=== PATIENT | male | born 1995 | race Caucasian/White ===

== ENCOUNTER 2021-09-11 21:51 | Emergency (ER) | payer SELFPAY ==
[~2021-09-11] VITALS: Ht 182.9 cm; Wt 80.7 kg
[2021-09-11 22:00] VITALS: BP 119/79
--- NOTE | 2021-09-11 22:06 | NUR ---
PATIENT AMBULATED TO THE BATHROOM FOR URINE COLLECTION
--- NOTE | 2021-09-11 22:11 | NUR ---
PT AMBULATED TO BED 08.
--- NOTE | 2021-09-11 22:33 | NUR ---
PATIENT ALERT ORIENTED COMPLAINING OF PAIN BUT STAY I DON LIKE THE HOSPITAL I DONT WANT TO BE HERE BECAUSE MY DOESNT ANSWER MY PHONE THE PATIENT WENT TO THE PARKING LOT AFTER HE COLECT THE URINE AND SAY THAT THE URINE MOST BE + for methanphetamine and alcohol because him been using today so he say he will be looking for his went to the parking lot and haven coming back so far //Caden CAMPBELL
== END 2021-09-11 22:33 | disposition left against medical advice (07) ==
LOC: MED 21:51
DX: R10.9 Unspecified abdominal pain (principal); Z53.21 Procedure and treatment not carried out due to patient leaving prior to being seen by health care provider

== ENCOUNTER 2021-10-17 01:20 | Emergency (ER) | payer MEDICAID ==
[~2021-10-17] VITALS: Ht 182.9 cm; Wt 79.4 kg
[2021-10-17 01:20] VITALS: BP 129/83
--- NOTE | 2021-10-17 01:20 | NUR ---
PT TAKEN TO ER BED 11. DR. WALDRON AT BEDSIDE
--- NOTE | 2021-10-17 01:31 | NUR ---
X-Ray at bedside.
--- NOTE | 2021-10-17 01:43 | NUR ---
[place] [employer] AT BEDSIDE
--- NOTE | 2021-10-17 01:49 | NUR ---
Patient to be transferred to [facility]. Is being transferred due to higher level of care. Receiving facility has accepting physician and available space. ER physician has signed transfer form. Patient or responsible republican has agreed to transfer and signed form. Patient belongings inventoried and will be sent with patient. Copy of nursing notes, lab reports, EKG, Physicians Orders and X-rays to be sent with patient. Report called to security business analyst at receiving facility. [facility] ambulance service has been called for transfer. ETA is 15minutes.
[2021-10-17] MEDS ORDERED: NACL 0.9% 1,000 ML IV ONE (01:50)
--- NOTE | 2021-10-17 01:53 | NUR ---
[facility] TRANSPORT AT BEDSIDE
--- NOTE | 2021-10-17 02:02 | NUR ---
PT LEFT FACILITY AT THIS TIME TO BE TRANSFERRED TO [facility]
--- NOTE | 2021-10-17 02:02 | NUR ---
PT TAKEN BY [facility] TRANSPORT TO [facility] ER
== END 2021-10-17 02:02 | disposition short-term general hospital (02) ==
LOC: MED 01:20
DX: S31.619A Laceration without foreign body of abdominal wall, unspecified quadrant with penetration into peritoneal cavity, initial encounter (principal); W26.0XXA Contact with knife, initial encounter; Y93.89 Activity, other specified; Y92.89 Other specified places as the place of occurrence of the external cause; Y99.8 Other external cause status
CPT/HCPCS: 71045; 74018; 96360; 99291; J7030; Q0092

== ENCOUNTER 2022-01-05 22:58 | Emergency (ER) | payer MEDICAID ==
[~2022-01-05] VITALS: Ht 182.9 cm; Wt 85.7 kg
[2022-01-05 23:11] VITALS: BP 123/73
--- NOTE | 2022-01-05 23:11 | NUR ---
TO BED AMBULATORY
--- NOTE | 2022-01-05 23:27 | NUR ---
Dr. Chappell examining patient.
--- NOTE | 2022-01-05 23:27 | NUR ---
Farhad medrano in [facility] - 01/05/[address] Chappell examining patient.
--- NOTE | 2022-01-05 23:28 | NUR ---
Farhad medrano in [facility] - 01/05/22 at 2333 by HUGO PT JANAE
--- NOTE | 2022-01-05 23:28 | NUR ---
Farhad medrano in [facility] - 01/05/22 at 2328 by HUGO CONRADO WILLARD
--- NOTE | 2022-01-05 23:29 | NUR ---
porfirio ramos. dr. Chappell made aware.
== END 2022-01-05 23:29 | disposition left against medical advice (07) ==
LOC: MED 22:58
DX: M54.9 Dorsalgia, unspecified (principal); M79.10 Myalgia, unspecified site; F15.90 Other stimulant use, unspecified, uncomplicated; Z53.21 Procedure and treatment not carried out due to patient leaving prior to being seen by health care provider

== ENCOUNTER 2022-02-08 00:11 | Emergency (ER) | payer MEDICAID ==
[~2022-02-08] VITALS: Ht 182.9 cm; Wt 81.6 kg
--- NOTE | 2022-02-08 00:11 | NUR ---
CONRADO RODRÍGUEZ PREBOOK. TAKEN TO CHAIR
[2022-02-08 00:20] VITALS: BP 112/79
--- NOTE | 2022-02-08 01:03 | NUR ---
Dr. Aiken examining patient.
[2022-02-08] MEDS ORDERED: ACETAMINOPHEN EXTRA STRENGTH 500 MG TAB PO ONE (01:05)
[2022-02-08 01:25] VITALS: BP 112/79
--- NOTE | 2022-02-08 01:25 | NUR ---
Patient discharged with v/s stable. Written and verbal after care instructions given and explained. Patient verbalized understanding. Ambulatory with steady gait. All questions addressed prior to discharge. Advised to follow up with PMD.
== END 2022-02-08 01:25 ==
LOC: MED 00:11
DX: F41.0 Panic disorder [episodic paroxysmal anxiety] (principal); R51.9 Headache, unspecified; F11.23 Opioid dependence with withdrawal; Z02.89 Encounter for other administrative examinations
CPT/HCPCS: 99282

== ENCOUNTER 2022-08-02 11:20 | Emergency (ER) | payer MEDICAID, OTHER ==
[~2022-08-02] VITALS: Ht 182.9 cm; Wt 80.7 kg
[2022-08-02 11:22] VITALS: BP 127/78
--- NOTE | 2022-08-02 11:26 | NUR ---
[place] [employer] FOR PREBOOK FOR MED CLEARANCE. C/O R KNEE PAIN X 1 WEEK. PMH: TRISHA
--- NOTE | 2022-08-02 11:30 | NUR ---
Patient being evaluated by DR ADAM at [facility].
[2022-08-02] MEDS ORDERED: KETOROLAC 60 MG/2 ML VIAL IM ONE (11:35)
--- NOTE | 2022-08-02 11:53 | NUR ---
Patient discharged with v/s stable. Written and verbal after care instructions given and explained. Patient alert, oriented and verbalized understanding of instructions. Police with in custody. All questions addressed prior to discharge. ID band removed. Patient advised to follow up with PMD.NO Rx given. Patient educated on indication of medication including possible reaction and side effects. Opportunity to ask questions provided and answered.
== END 2022-08-02 11:50 ==
LOC: MED 11:20
DX: M25.561 Pain in right knee (principal)
CPT/HCPCS: 96372; 99283; J1885